=== PATIENT | female | born 1930 | race Caucasian/White ===

== ENCOUNTER 2017-07-07 09:04 | Emergency (ER) | payer MEDICARE, OTHER ==
[~2017-07-07] VITALS: Ht 160 cm; Wt 65.8 kg
[2017-07-07 09:12] VITALS: BP 143/61
[2017-07-07] MEDS ORDERED: ACETAMINOPHEN 325 MG TABLET ONE (09:42)
[2017-07-07] MEDS ORDERED: TRAMADOL HCL 50 MG TABLET ONE (09:42)
[2017-07-07] MEDS ORDERED: TRAMADOL HCL 50 MG TABLET PO ONE (10:00)
[2017-07-07] MEDS ORDERED: ACETAMINOPHEN 325 MG TABLET PO ONE (10:00)
== END 2017-07-07 11:06 | disposition home or self-care (01) ==
LOC: ER 09:05
DX: S33.8XXA Sprain of other parts of lumbar spine and pelvis, initial encounter (principal); I10 Essential (primary) hypertension; V49.59XA Passenger injured in collision with other motor vehicles in traffic accident, initial encounter; Y93.89 Activity, other specified; Y92.410 Unspecified street and highway as the place of occurrence of the external cause; Y99.8 Other external cause status
CPT/HCPCS: A4606; Z7610